=== PATIENT | male | born 1940 | race Caucasian/White ===

== ENCOUNTER → 2019-10-09 11:02 | Outpatient (CLI) | payer MEDICARE, OTHER, SELFPAY ==
[2019-10-09 11:40] LABS: Basophils # 0.1 K/mm3 (0-0.2); Eosinophils # 0.3 K/mm3 (0.0-0.4); Eosinophils % 4.3 % (0.1-12.0); Hematocrit 37.9 % (42.0-52.0); Hemoglobin 10.4 g/dL (14.1-18.0); Lymphocytes # 2.3 K/mm3 (0.7-4.5); Lymphocytes % 30.5 % (10-50); Mean Corpuscular HGB Conc 27.5 g/dL (31.8-35.4); Mean Corpuscular Hemoglobin 22.8 pg (27.0-31.2); Mean Corpuscular Volume 82.7 fl (80-94); Mean Platelet Volume 9.1 fl (7.4-10.4); Monocytes # 0.5 K/mm3 (0.1-1.0); Monocytes % 6.7 % (1.7-9.3); Neutrophils # 4.3 K/mm3 (1.8-7.8); Neutrophils % 57.4 % (37.0-80.0); Platelet Count 212 K/mm3 (142-424); Red Blood Count 4.58 M/mm3 (4.60-6.20); White Blood Count 7.5 K/mm3 (4.8-10.8)
[2019-10-09 11:50] LABS: Red Cell Distribution Width 26.7 % (11.5-17.5)
[2019-10-09 12:30] LABS: Alanine Aminotransferase 28 U/L (12-78); Albumin Level 3.8 gm/dL (3.4-5.0); Alkaline Phosphatase 72 U/L (46-116); Aspartate Amino Transferase 28 U/L (15-37); Bilirubin,Total 0.8 mg/dL (0.2-1.0); Blood Urea Nitrogen 13 mg/dL (7-18); Calcium 8.9 mg/dL (8.5-10.1); Carbon Dioxide 28 mmol/L (21.0-32.0); Chloride 106 mmol/L (98-107); Creatinine,Serum 0.95 mg/dL (0.70-1.30); Estimated Glomerular Filt Rate 77 ml/min (>60); GFR (African American) 93 ML/MIN (>60); Globulin 3.7 gm/dl (1.3-3.2); Glucose 121 mg/dL (74-106); Lactate Dehydrogenase 278 U/L (82-234); Sodium 143 mmol/L (136-145); Total Protein,Serum 7.5 gm/dL (6.4-8.2)
[2019-10-10 09:20] LABS: Haptoglobin 198 mg/dL (34-355)
[2019-10-10 11:05] LABS: Immunoglobulin A, Qn 448 mg/dL (61-437)
[2019-10-10 18:19] LABS: Tissue Transglutaminase IgA Ab <2 U/mL (0-3)
== END ==
PROVIDERS: Visit Provider Internal Medicine Medical Oncology
DX: D50.9 Iron deficiency anemia, unspecified (principal)
CPT/HCPCS: 36415; 80053; 82784; 83010; 83516; 83615; 85025

== ENCOUNTER 2019-10-13 12:08 | Outpatient (CLI) | payer MEDICARE, OTHER, SELFPAY ==
[2019-10-13 12:17] VITALS: BP 148/78; PULSE 70; RESP 18; TEMP 36.6; O2SAT 97
[2019-10-13 12:30] VITALS: BP 152/75; PULSE 67; RESP 18; TEMP 36.6; O2SAT 96
[2019-10-13 12:45] VITALS: BP 139/82; PULSE 75; RESP 20; TEMP 36.6; O2SAT 96
[2019-10-13 13:00] VITALS: BP 142/79; PULSE 76; RESP 18; TEMP 36.6; O2SAT 95
[2019-10-13 13:15] VITALS: BP 138/80; PULSE 74; RESP 20; TEMP 36.7; O2SAT 96
== END 2019-10-13 13:20 | disposition home or self-care (01) ==
LOC: INF 12:08
PROVIDERS: Visit Provider Internal Medicine Medical Oncology
DX: D50.9 Iron deficiency anemia, unspecified (principal); T45.4X5A Adverse effect of iron and its compounds, initial encounter
CPT/HCPCS: 96365; J1439

== ENCOUNTER 2019-10-20 11:28 | Outpatient (CLI) | payer MEDICARE, OTHER, SELFPAY ==
[2019-10-20 11:46] VITALS: BP 146/72; PULSE 58; RESP 20; TEMP 36.4; O2SAT 96
[2019-10-20 12:05] VITALS: BP 158/77; PULSE 59; RESP 18; TEMP 36.6; O2SAT 97
[2019-10-20 12:20] VITALS: BP 142/79; PULSE 60; RESP 18; TEMP 36.6; O2SAT 97
[2019-10-20 12:35] VITALS: BP 142/78; PULSE 61; RESP 20; TEMP 36.6; O2SAT 96
== END 2019-10-20 12:45 | disposition home or self-care (01) ==
LOC: INF 11:28
PROVIDERS: Visit Provider Internal Medicine Medical Oncology
DX: D50.9 Iron deficiency anemia, unspecified (principal); T45.4X5A Adverse effect of iron and its compounds, initial encounter
CPT/HCPCS: 96365; J1439

== ENCOUNTER → 2019-11-06 09:06 | Outpatient (CLI) | payer MEDICARE, OTHER, SELFPAY ==
--- NOTE | 2019-11-06 09:11 | CT_ITS ---
PROCEDURE: CT ABDOMEN PELVIS W CON CLINICAL INDICATION: Iron deficiency anemia COMPARISON: No exams were available for comparison TECHNIQUE: IV Contrast: 75ML OPTIRAY 350 Oral Contrast none Axial images obtained with sagittal and coronal reformats. All CT scans at the facility use one or more dose reduction, viz: automated exposure control, ma/kV adjustment per patient size (including targeted exams where dose is matched to indication, i.e. head), or iterative reconstruction technique. FINDINGS: LOWER THORAX: Please see chest CT report ABDOMEN & PELVIS: There is a moderate-sized hiatal hernia. The liver, spleen, adrenal glands, pancreas, and kidneys have an unremarkable appearance. There may be gallstones present which could be confirmed with ultrasound if clinically warranted. No intestinal obstruction or free air. No evidence of appendicitis. There is diverticulosis of the descending and sigmoid colon but no evidence of diverticulitis. Prostate is enlarged at 5.9 cm. Minimal dilatation of the mid abdominal aorta at 2 cm. There is a small umbilical hernia which contains fat. No adenopathy. No acute bony anomalies IMPRESSION: 1. No acute abdominal or pelvic findings. 2. Possible cholelithiasis. 3. Moderate-sized hiatal hernia. 4. Enlarged prostate Dictated by: Shan Keen MD 11/07/2019 12:00 Electronically signed by Shan Keen MD in [place] 11/07/2019 12:00
--- NOTE | 2019-11-06 09:11 | CT_ITS ---
PROCEDURE: CT CHEST WO CON CLINICAL INDICATION: IRON DEFICIENCY, PULMONARY FIBROSIS COMPARISON: [facility] CT CHEST W/O CONTRAST from 01/18/2014 CT ABDOMEN PELVIS W CON from 11/06/2019 TECHNIQUE: Axial images obtained with sagittal and coronal reformats. All CT scans at the facility use one or more dose reduction, viz: automated exposure control, ma/kV adjustment per patient size (including targeted exams where dose is matched to indication, i.e. head), or iterative reconstruction technique. FINDINGS: HEART AND MEDIASTINAL STRUCTURES: There is mild mediastinal adenopathy. Mediastinal lymph nodes appear slightly more prominent than when compared to the previous exam the measuring up to 2.9 x 1.3 cm in the precarinal region. Previously this node measured 2.2 by 1.1 cm. There has been a prior CABG. There is mild cardiomegaly. There is a moderate size hiatal hernia LUNGS AND PLEURAL SPACES: There is prominence of the interstitium with scattered areas of ground-glass attenuation/crazy paving along with pulmonary fibrotic changes with honeycombing in the lung bases. These findings have progressed since the previous exam. The interstitial markings have increased since the previous exam. No effusions are evident. BONY STRUCTURES: No acute bony abnormalities apparent. UPPER ABDOMEN: Suspected cholelithiasis. Moderate-sized hiatal hernia. There is gas present in the soft gas throughout which could be due to reflux. ADDITIONAL FINDINGS: No other significant abnormalities. IMPRESSION: Interval progression of the interstitial and alveolar disease with a crazy paving pattern/mosaic attenuation with prominent interstitium. This could be inflammatory or infectious in nature. Pulmonary edema with interstitial lung disease is also consideration. Nonspecific interstitial pneumonia is considered. Fibrotic changes in the lung bases have increased. Dictated by: Shan Keen MD 11/07/2019 11:44 Electronically signed by Shan Keen MD in [place] 11/07/2019 11:44
--- NOTE | 2019-11-06 10:51 | CA_ITS ---
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: Nancy Diaz CRT Ht: 5 ft 7 in Wt: 194lbs BSA: 2.00 BP: 147/72 mmHg Indications: Congestive Heart Failure, Syncope, Hyperlipidemia, Hypertension/HDD, CABG, HOME O2 2D Dimensions LVOT 2.05 cm (M/F) 1.5-2.5 M-Mode Dimensions RVDd 2.64 cm (0.9-2.6) LVDd 4.51 cm (3.5-5.7) LVDs 3.00 cm (3.5-5.7) IVSd 2.12 cm (0.6-1.1) PWd 1.18 cm (0.6-1.1) EF (Teich) 62.30% FS 33.50% EDV (Teich) 92.90 mL ESV (Teich) 35.00 mL LV Diastology E/A Ratio 0.61 Mitral Valve MV A Velocity 66.00 (40-130 cm/s) Left Ventricle Left atrium is mildly enlarged, left ventricle is normal size, mild concentric left ventricular hypertrophy, visually estimated ejection fraction 55% with no regional wall motion abnormality, grade 1 diastolic dysfunction seen without tissue Doppler evidence of raise left atrial pressure. Right Ventricle Right atrium is normal size, right ventricle is mildly enlarged with normal contractility. Aortic Valve Aortic valve is thickened and calcified leaflet chordae display mobility, there is no aortic stenosis, there is mild aortic insufficiency. Mitral Valve Mitral valve leaflets are minimally thickened, there is mild mitral annular calcification present, there is no mitral stenosis, there is mild mitral regurgitation. Tricuspid Valve Tricuspid valve is grossly normal, there is mild tricuspid regurgitation. Pulmonic Valve Pulmonic valve is poorly visualized. Great Vessels Aortic root is normal size, ascending aorta above the sinotubular junction is enlarged, if clinically indicated CT scan of the chest with contrast is recommended to exclude presence of thoracic aneurysm. Pericardium No significant pericardial effusion noted. Conclusion 1. Mildly enlarged left atrium, normal left ventricular size, mild concentric left ventricular hypertrophy, visually estimated ejection fraction 55% with no regional wall motion abnormality, grade 1 diastolic dysfunction seen without tissue Doppler evidence of raise left atrial pressure. 2. Mildly enlarged right ventricle with normal contractility. 3. Thickened and calcified aortic valve without aortic stenosis, there is mild aortic insufficiency, ascending aorta above the sinotubular junction is enlarged, a CT scan of the chest with contrast is recommended to exclude the presence of thoracic aneurysm. 4. Mild mitral and tricuspid regurgitation. 5. No significant pericardial effusion noted. Electronically signed by : Ethan Pedersen, 11/06/2019 14:59:57
--- NOTE | 2019-11-06 10:51 | CA_ITS ---
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: CT Laterality: Bilateral Study Quality: Technically Difficult Indications: CAD, CHF, BRUIT Risk Factors Hypertension: Hyperlipidemia Doppler Spectral Velocity Analysis ECA (R) 81.30/7.70 cm/s ECA (L) 51.10/1.00 cm/s dICA (R) 72.60/21.70 cm/s dICA (L) 67.80/18.80 cm/s Yolie (R) 82.30/20.90 cm/s Yolie (L) 83.40/20.90 cm/s pICA (R) 65.30/17.70 cm/s pICA (L) 82.40/21.90 cm/s dCCA (R) 76.30/15.00 cm/s dCCA (L) 73.80/14.10 cm/s pCCA (R) 90.80/14.60 cm/s pCCA (L) 132.80/14.60 cm/s Vert (R) 44.70/9.60 cm/s Vert (L) 66.10/16.70 cm/s ICA/CCA 1.10 ICA/CCA 1.10 Findings Duplex evaluation demonstrates stenosis of the right proximal internal carotid artery in the range of 20-49%. Duplex evaluation demonstrates stenosis of the left proximal internal carotid artery in the range of 20-49%. Technically difficult study. Duplex evaluation demonstrates antegrade flow of the bilateral Vertebral Arteries. Conclusion Duplex evaluation demonstrates stenosis of the right proximal internal carotid artery in the range of 20-49%. Duplex evaluation demonstrates stenosis of the left proximal internal carotid artery in the range of 20-49%. Duplex evaluation demonstrates antegrade flow of the bilateral Vertebral Arteries. Electronically signed by : Shan Keen MD 11/06/2019 16:06:34
== END ==
PROVIDERS: PCP Nurse Practitioner Family; Visit Provider Nurse Practitioner Family
DX: R55 Syncope and collapse (principal); R53.1 Weakness; D50.0 Iron deficiency anemia secondary to blood loss (chronic); J84.10 Pulmonary fibrosis, unspecified; I50.22 Chronic systolic (congestive) heart failure
CPT/HCPCS: 71250; 74177; 93306; 93880